=== PATIENT | male | born 1980 | race Caucasian/White ===

== ENCOUNTER 2020-06-26 16:02 | Emergency (ER) | payer OTHER, SELFPAY ==
[2020-06-26 16:16] VITALS: BP 193/145; PULSE 102; RESP 18; TEMP 36.7; O2SAT 99; BMI 27.3
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
[2020-06-26 19:26] VITALS: BP 155/113; PULSE 108; RESP 18; O2SAT 98
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
[2020-06-26] MEDS: tetanus-dipt-pertussis 0.5 mL SDV IM (20:25)
[2020-06-26] MEDS: HYDROcodone-acetaminophen 7.5-325 mg Tablet 1 TAB PO (20:25)
[2020-06-26] MEDS: bacitracin ointment Pkt 3 EACH TOPICAL (20:25)
[2020-06-26 20:30] VITALS: BP 169/105; PULSE 107; RESP 16; O2SAT 99
[2020-06-26 22:16] VITALS: BP 148/96; PULSE 105; RESP 16; O2SAT 99
== END 2020-06-26 22:18 | disposition home or self-care (01) ==
PROVIDERS: Emergency Provider Physician Assistant
DX: S40.812A Abrasion of left upper arm, initial encounter (principal); S40.811A Abrasion of right upper arm, initial encounter; S30.811A Abrasion of abdominal wall, initial encounter; S80.212A Abrasion, left knee, initial encounter; V29.9XXA Motorcycle rider (driver) (passenger) injured in unspecified traffic accident, initial encounter; Z23 Encounter for immunization
CPT/HCPCS: 70450; 73502; 73562; 90471; 90715; 99283; E0114